=== PATIENT | male | born 1995 | race Caucasian/White ===

== ENCOUNTER 2017-06-23 17:12 | Emergency (ER) | payer BC ==
[2017-06-23] MEDS ORDERED: HYDROmorphone 1 MG/ML Syringe ONE (17:43)
[2017-06-23] MEDS ORDERED: Sodium Chloride 0.9% 1,000 ML ONE (17:43)
[2017-06-23] MEDS ORDERED: Ondansetron 4 MG/2 ML SDV ONE (17:43)
[2017-06-23] MEDS ORDERED: Sodium Chloride 0.9% 1,000 ML IV ONE (17:46)
[2017-06-23] MEDS ORDERED: HYDROmorphone 1 MG/ML Syringe IVPUSH ONE (17:46)
[2017-06-23] MEDS ORDERED: Ondansetron 4 MG/2 ML SDV IVPUSH ONE (17:46)
--- NOTE | 2017-06-23 17:53 | EDM.PDOC ---
ED HPI GENERAL MEDICAL PROBLEM - General Chief Complaint: Headache Stated Complaint: DIZZY Time Seen by Provider: 06/23/17 17:45 Source of Information: Reports: Patient History Limitations: Reports: No Limitations - History of Present Illness INITIAL COMMENTS - FREE TEXT/NARRATIVE: Patient is a 22-year-old gentleman who presents the emergency department this evening with a complaint of severe headache. Patient states that on 06/21/2017 , He was out drinking alcohol with friends and was told by them that he fell down a 6 steps flight of stairs. Patient was then taken to his home and put into bed. Patient does not remember incident or being transported home. Patient states yesterday he did have a slight headache and also had difficulty sleeping last evening. He went to work today where he is employed at [employer] and the headache progressively worsened. Now he feels dizzy, nauseated, and is light sensitive. Patient denies chest pain, shortness of breath, abdominal pain , neck pain, fever, or any other injuries. Onset: Gradual Duration: Day(s): Location: Reports: Head Quality: Reports: Ache, Pressure Severity: Severe Improves with: Reports: None Worsens with: Reports: None Context: Reports: Trauma (suspected) Associated Symptoms: Reports: Headaches, Nausea/Vomiting Treatments CLIENT LEADER: Reports: NSAIDS - Related Data Allergies Allergy/AdvReac Type Severity Reaction Status Date / Time No Known Allergies Allergy Verified 06/23/17 18:03 Home Meds: Home Meds Ibuprofen 600 mg PO DAILY PRN 06/23/17 [History] ED ROS GENERAL - Review of Systems Review Of Systems: ROS reveals no pertinent complaints other than HPI. Constitutional: Reports: No Symptoms HEENT: Reports: Other (dizziness and light intolerance) Respiratory: Reports: No Symptoms Cardiovascular: Reports: No Symptoms Endocrine: Reports: No Symptoms GI/Abdominal: Reports: No Symptoms : Reports: No Symptoms Musculoskeletal: Reports: No Symptoms Skin: Reports: No Symptoms Neurological: Reports: Dizziness, Headache. Denies: Numbness, Paresthesia, Pre- Existing Deficit, Trouble Speaking, Difficulty Walking, Change in Speech, Gait Disturbance Psychiatric: Reports: No Symptoms Hematologic/Lymphatic: Reports: No Symptoms Immunologic: Reports: No Symptoms - Physical Exam Exam: See Below Exam Limited By: No Limitations General Appearance: Alert, WD/WN, Mild Distress Eye Exam: Bilateral Eye: Normal Inspection Ears: Normal External Exam, Normal Canal, Normal TMs Nose: Normal Inspection, Normal Mucosa, No Blood Throat/Mouth: Normal Inspection, Normal Oropharynx, No Airway Compromise Head Exam: Atraumatic, Normocephalic. No: Scalp Lacerations, Scalp Swelling, Scalp Hematoma, Scalp Tenderness, Facial Ecchymosis, Facial Swelling, Facial Tenderness Neck: Normal Inspection, Supple, Non-Tender, Full Range of Motion Respiratory/Chest: No Respiratory Distress, Lungs Clear, Normal Breath Sounds, No Accessory Muscle Use, Chest Non-Tender Cardiovascular: Regular Rate, Rhythm, No Murmur GI/Abdominal: Normal Bowel Sounds, Soft, Non-Tender, No Organomegaly, No Distention, No Abnormal Bruit, No Mass, Pelvis Stable Neuro Exam (Abbreviated): Alert, Oriented, CN II-XII Intact, Normal Cognition, No Motor/Sensory Deficits Back Exam: Normal Inspection, Full Range of Motion. No: CVA Tenderness (L), CVA Tenderness (R) Extremities: Normal Inspection, Non-Tender Psychiatric: Normal Affect, Normal Mood Skin Exam: Warm, Dry, Intact, Normal Color, No Rash Course - Orders/Labs/Meds Orders: Active Orders 24 hr Category Date Time Status Head wo Cont [CT] Stat Exams 06/23/17 17:46 Ordered CBC WITH AUTO DIFF [HEME] Stat Lab 06/23/17 17:46 Ordered COMPREHENSIVE METABOLIC PN,CMP [CHEM] Stat Lab 06/23/17 17:46 Ordered DRUG SCREEN, URINE [URCHEM] Stat Lab 06/23/17 17:46 Uncollected ETHANOL BLOOD MEDICAL [CHEM] Stat Lab 06/23/17 17:46 Ordered INR,PT,PROTHROMBIN TIME [COAG] Stat Lab 06/23/17 17:46 Ordered PTT,PARTIAL THROMBOPLSTIN TIME [COAG] Stat Lab 06/23/17 17:46 Ordered HYDROmorphone [Dilaudid] Med 06/23/17 17:46 Once 1 mg IVPUSH ONETIME ONE Ondansetron [Zofran] Med 06/23/17 17:46 Once 4 mg IVPUSH ONETIME ONE Sodium Chloride 0.9% @ 999 MLS/HR (1000ml) Med 06/23/17 17:46 Ordered Sodium Chloride 0.9% [Normal Saline] 1,000 ml IV .BOLUS Meds: Medications Discontinued Medications Generic Name Dose Route Start Last Admin Trade Name Freq PRN Reason Stop Dose Admin Hydromorphone HCl Confirm 06/23/17 17:43 Dilaudid Administered 06/23/17 17:44 Dose 1 mg .ROUTE .STK-MED ONE Sodium Chloride Confirm 06/23/17 17:43 Normal Saline Administered 06/23/17 17:44 Dose 1,000 mls @ as directed .ROUTE .STK-MED ONE Ondansetron HCl Confirm 06/23/17 17:43 Zofran Administered 06/23/17 17:44 Dose 4 mg .ROUTE .STK-MED ONE - Radiology Interpretation Free Text/Narrative:: CT HEAD WITHOUT CONTRAST SHOWS NO ACUTE PROCESS CT Results Date: 06/23/17 CT Results Time: 19:15 - Re-Assessments/Exams Free Text/Narrative Re-Assessment/Exam: 06/23/17 19:15 PATIENT AFEBRILE, NONTOXIC APPEARING, VITAL SIGNS STABLE, PAIN RELIEVED. GIRLFRIEND AT BEDSIDE. Departure - Departure Time of Disposition: 19:15 Disposition: Home, Self-Care 01 Condition: Good Clinical Impression: Dehydration, mild Headache Qualifiers: Headache type: unspecified Headache chronicity pattern: acute headache Intractability: not intractable Qualified Code(s): R51 - Headache - Discharge Information Instructions: General Headache Without Cause, [id number], Dehydration, Adult , [id number] Referrals: PCP,None [Primary Care Provider] - Forms: ED Department Discharge Additional Instructions: FOLLOW-UP HER PRIMARY CARE DOCTOR IN NEXT 2-3 DAYS. RETURN TO ER SOONER IF SYMPTOMS CONTINUE OR WORSEN. - My Orders Last 24 Hours: My Active Orders 06/23/17 17:46 Head wo Cont [CT] Stat CBC WITH AUTO DIFF [HEME] Stat COMPREHENSIVE METABOLIC PN,CMP [CHEM] Stat DRUG SCREEN, URINE [URCHEM] Stat ETHANOL BLOOD MEDICAL [CHEM] Stat INR,PT,PROTHROMBIN TIME [COAG] Stat PTT,PARTIAL THROMBOPLSTIN TIME [COAG] Stat HYDROmorphone [Dilaudid] 1 mg IVPUSH ONETIME ONE Ondansetron [Zofran] 4 mg IVPUSH ONETIME ONE Sodium Chloride 0.9% @ 999 MLS/HR (1000ml) Sodium Chloride 0.9% [Normal Saline] 1,000 ml IV .BOLUS - Assessment/Plan Last 24 Hours: My Active Orders 06/23/17 17:46 Head wo Cont [CT] Stat CBC WITH AUTO DIFF [HEME] Stat COMPREHENSIVE METABOLIC PN,CMP [CHEM] Stat DRUG SCREEN, URINE [URCHEM] Stat ETHANOL BLOOD MEDICAL [CHEM] Stat INR,PT,PROTHROMBIN TIME [COAG] Stat PTT,PARTIAL THROMBOPLSTIN TIME [COAG] Stat HYDROmorphone [Dilaudid] 1 mg IVPUSH ONETIME ONE Ondansetron [Zofran] 4 mg IVPUSH ONETIME ONE Sodium Chloride 0.9% @ 999 MLS/HR (1000ml) Sodium Chloride 0.9% [Normal Saline] 1,000 ml IV .BOLUS Assessment:: HEADACHE, DEHYDRATION Plan: FOLLOW-UP WITH PCP
[2017-06-23 18:05] LABS: CHLORIDE,CL 102 mmol/L (98-115); SODIUM,NA 139 mmol/L (136-145)
== END 2017-06-23 19:30 | disposition home or self-care (01) ==
LOC: KA.ED 17:12
DX: E86.0 Dehydration (principal); Z79.1 Long term (current) use of non-steroidal anti-inflammatories (NSAID)
CPT/HCPCS: 70450; 80053; 80305; 85025; 85610; 85730; 96361; 96374; 96375; 99284; G0480; J1170; J2405; J7030